=== PATIENT | female | born 1980 | race African-American/Black ===

== ENCOUNTER 2017-10-21 14:40 | Inpatient (IN) | payer MEDICAID ==
[~2017-10-21] VITALS: Ht 172.7 cm; Wt 64.0 kg
[2017-10-21 14:49] VITALS: Ht 172.7 cm; Wt 64.0 kg
[2017-10-21 15:10] LABS: BASOPHIL % 0.4 % (0-2); PLATELET COUNT 273 x10^3mcL (130-400); RED CELL DISTRIBUTION WIDTH 13.7 % (11.5-14.5)
[2017-10-21 15:21] LABS: CALCIUM 8.6 mg/dL (8.5-10.1); CARBON DIOXIDE 25.3 mmol/L (21-32); CHLORIDE SERUM 109 mmol/L (98-107); CREATININE SERUM 0.9 mg/dL (0.6-1.0); GFR1 > 60 mL/min; GLUCOSE SERUM 115 mg/dL (74-106); POTASSIUM SERUM 3.5 mmol/L (3.5-5.1); SODIUM SERUM 144 mmol/L (136-145)
[2017-10-21 15:27] LABS: ALBUMIN 3.1 g/dL (3.4-5.0); ALKALINE PHOSPHATASE 67 U/L (46-116); ALT/SGPT 22 U/L (14-59); AST/SGOT 19 U/L (15-37); BILIRUBIN TOTAL 0.32 mg/dL (0.20-1.00); TOTAL PROTEIN, SERUM 7.3 g/dL (6.4-8.2)
[2017-10-21 16:17] LABS: AMPHETAMINE QUAL UR NONE DETECTED (See below)
[2017-10-21 16:19] LABS: UA SPECIFIC GRAVITY >=1.030 (1.005-1.035); microscopic required? YES; urine erythrocyte 1+ (NEGATIVE)
[2017-10-22] MEDS ORDERED: VALIUM2 MG PO (17:44)
[2017-10-22 19:55] LABS: MAGNESIUM 2.1 mg/dL (1.8-2.4); PHOSPHOROUS 3.7 mg/dL (2.5-4.9)
[2017-10-22 20:03] LABS: T3 TOTAL 0.95 ng/mL
[2017-10-22 20:05] LABS: RED BLOOD CELLS 3.75 M/mm3 (4.10-5.10)
[2017-10-22 20:23] VITALS: BP 104/55
[2017-10-22 20:24] LABS: IRON 62 ug/dL (50-170); TOTAL IRON BINDING CAPACITY 282 ug/dL (250-450)
[2017-10-22 20:43] LABS: FREE T4 0.85 ng/dL (0.76-1.46); FREE THYROXINE INDEX 1.8 ug/dL (1.4-4.5); T4(THYROXINE) 5.4 ug/dL (4.7-13.3)
[2017-10-23 06:06] VITALS: BP 97/56
[2017-10-23 06:52] LABS: BASOPHIL % 0.4 % (0-2); PLATELET COUNT 256 x10^3mcL (130-400); RED CELL DISTRIBUTION WIDTH 14.3 % (11.5-14.5)
[2017-10-23 07:26] LABS: CALCIUM 8.2 mg/dL (8.5-10.1); CARBON DIOXIDE 23.9 mmol/L (21-32); CHLORIDE SERUM 105 mmol/L (98-107); CREATININE SERUM 0.6 mg/dL (0.6-1.0); GFR1 > 60 mL/min; GLUCOSE SERUM 87 mg/dL (74-106); POTASSIUM SERUM 3.8 mmol/L (3.5-5.1); SODIUM SERUM 137 mmol/L (136-145)
[2017-10-23 09:40] VITALS: BP 111/64
[2017-10-23 16:42] VITALS: BP 115/76
[2017-10-23 20:42] VITALS: BP 103/82
[2017-10-24 05:26] VITALS: BP 110/84
[2017-10-24 09:55] VITALS: BP 112/60
[2017-10-24 18:21] VITALS: BP 101/62
[2017-10-24 20:02] VITALS: BP 97/58
[2017-10-25 04:59] VITALS: BP 101/62
[2017-10-25 07:26] VITALS: BP 102/61
[2017-10-25 12:36] VITALS: BP 107/62
[2017-10-25 17:51] VITALS: BP 108/54
[2017-10-25 20:01] VITALS: BP 109/48
[2017-10-26 05:48] VITALS: BP 99/57
[2017-10-26 09:45] VITALS: BP 105/59
[2017-10-26 16:03] VITALS: BP 106/65
[2017-10-26 19:27] VITALS: BP 105/56
[2017-10-27 06:01] VITALS: BP 99/57
[2017-10-27 07:42] VITALS: BP 102/61
[2017-10-27 07:43] VITALS: BP 99/60
[2017-10-27 11:56] VITALS: BP 106/66
[2017-10-27 16:46] VITALS: BP 109/57
[2017-10-27 20:53] VITALS: BP 103/59
[2017-10-28 05:56] VITALS: BP 105/54
[2017-10-28 07:30] LABS: BASOPHIL % 0.6 % (0-2); PLATELET COUNT 258 x10^3mcL (130-400)
[2017-10-28 07:49] LABS: CALCIUM 8.5 mg/dL (8.5-10.1); CARBON DIOXIDE 28.2 mmol/L (21-32); CHLORIDE SERUM 103 mmol/L (98-107); CREATININE SERUM 0.7 mg/dL (0.6-1.0); GFR1 > 60 mL/min; GLUCOSE SERUM 81 mg/dL (74-106); MAGNESIUM 1.7 mg/dL (1.8-2.4); PHOSPHOROUS 3.1 mg/dL (2.5-4.9); POTASSIUM SERUM 4.1 mmol/L (3.5-5.1); SODIUM SERUM 136 mmol/L (136-145)
[2017-10-28 10:13] VITALS: BP 105/47
[2017-10-28 17:56] VITALS: BP 105/53
[2017-10-28 20:42] VITALS: BP 94/58
[2017-10-29 05:32] VITALS: BP 95/53
[2017-10-29 06:35] LABS: BASOPHIL % 0.6 % (0-2); PLATELET COUNT 245 x10^3mcL (130-400); RED CELL DISTRIBUTION WIDTH 14.2 % (11.5-14.5)
[2017-10-29 06:45] LABS: CALCIUM 8.8 mg/dL (8.5-10.1); CARBON DIOXIDE 27.8 mmol/L (21-32); CHLORIDE SERUM 105 mmol/L (98-107); CREATININE SERUM 0.8 mg/dL (0.6-1.0); GFR1 > 60 mL/min; GLUCOSE SERUM 83 mg/dL (74-106); MAGNESIUM 1.8 mg/dL (1.8-2.4); POTASSIUM SERUM 4.3 mmol/L (3.5-5.1); SODIUM SERUM 136 mmol/L (136-145)
[2017-10-29 08:19] VITALS: BP 104/49
[2017-10-29 17:28] VITALS: BP 102/81
[2017-10-29 20:50] VITALS: BP 100/52
[2017-10-30 05:55] VITALS: BP 98/57
[2017-10-30 09:20] VITALS: BP 103/63
[2017-10-30 16:37] VITALS: BP 110/52
[2017-10-30 23:17] VITALS: BP 104/53
[2017-10-31 05:27] VITALS: BP 97/52
[2017-10-31 08:11] VITALS: BP 108/62
[2017-10-31 17:18] VITALS: BP 101/55
[2017-10-31 19:50] VITALS: BP 103/53
[2017-11-01 05:43] VITALS: BP 111/62
[2017-11-01 09:33] VITALS: BP 100/59
[2017-11-01 17:35] VITALS: BP 100/46
[2017-11-02 05:29] VITALS: BP 101/65
[2017-11-02 09:20] VITALS: BP 112/64
[2017-11-03 05:44] VITALS: BP 96/55
[2017-11-03 10:08] VITALS: BP 102/54
[2017-11-03 20:55] VITALS: BP 91/63
[2017-11-04 05:36] VITALS: BP 109/60
[2017-11-04 10:04] VITALS: BP 111/54
[2017-11-04 21:03] VITALS: BP 98/48
[2017-11-05 05:28] VITALS: BP 102/55
[2017-11-05 08:07] VITALS: BP 109/62
[2017-11-05 12:06] VITALS: BP 110/61
[2017-11-05 17:10] VITALS: BP 91/42
[2017-11-05 21:37] VITALS: BP 102/53
[2017-11-06 04:46] VITALS: BP 96/52
[2017-11-06 10:03] VITALS: BP 102/58
[2017-11-06 17:32] VITALS: BP 104/43
[2017-11-06 20:39] VITALS: BP 102/58
[2017-11-07 05:30] VITALS: BP 103/54
[2017-11-07 09:33] VITALS: BP 120/69
[2017-11-07 17:43] VITALS: BP 124/72
[2017-11-07 20:46] VITALS: BP 112/60
[2017-11-08 05:50] VITALS: BP 127/75
[2017-11-08 08:25] VITALS: BP 113/62
[2017-11-08 16:24] VITALS: BP 106/63
[2017-11-08 20:35] VITALS: BP 123/67
[2017-11-09 05:42] VITALS: BP 105/54
[2017-11-09 07:55] VITALS: BP 109/63
[2017-11-09 09:30] VITALS: BP 113/64
[2017-11-09 11:48] VITALS: BP 118/73
[2017-11-09 16:00] VITALS: BP 108/62
[2017-11-09 20:58] VITALS: BP 102/57
[2017-11-10 05:06] VITALS: BP 95/47
[2017-11-10 08:23] VITALS: BP 118/60
[2017-11-10 16:38] VITALS: BP 108/60
[2017-11-10 17:01] VITALS: BP 125/70
[2017-11-10 20:37] VITALS: BP 103/60
[2017-11-11 05:22] VITALS: BP 109/57
[2017-11-11 08:24] VITALS: BP 118/63
[2017-11-11 17:03] VITALS: BP 109/58
[2017-11-11 20:43] VITALS: BP 109/57
[2017-11-12 05:39] VITALS: BP 103/63
[2017-11-12 09:04] VITALS: BP 158/65
[2017-11-12 17:17] VITALS: BP 87/45
[2017-11-12 20:53] VITALS: BP 100/81
[2017-11-13 05:13] VITALS: BP 137/62
[2017-11-13 09:15] VITALS: BP 127/73
[2017-11-13 17:06] VITALS: BP 130/69
[2017-11-14 04:52] VITALS: BP 91/52
[2017-11-14 08:34] VITALS: BP 112/60
[2017-11-14 17:05] VITALS: BP 99/54
[2017-11-14 20:58] VITALS: BP 93/54
[2017-11-15 05:32] VITALS: BP 92/47
[2017-11-15 08:38] VITALS: BP 117/71
[2017-11-15 17:00] VITALS: BP 107/53
[2017-11-15 20:30] VITALS: BP 96/44
[2017-11-16 05:38] VITALS: BP 97/55
[2017-11-16 08:37] VITALS: BP 113/66
[2017-11-16 17:06] VITALS: BP 107/63
[2017-11-16 21:25] VITALS: BP 102/54
[2017-11-17 08:00] VITALS: BP 114/76
[2017-11-17 17:26] VITALS: BP 100/55
[2017-11-17 20:47] VITALS: BP 116/66
[2017-11-17 20:53] VITALS: BP 98/55
[2017-11-18 05:36] VITALS: BP 101/59
[2017-11-18 08:58] VITALS: BP 110/72
[2017-11-18 16:49] VITALS: BP 106/58
[2017-11-18 20:55] VITALS: BP 105/60
[2017-11-19 05:17] VITALS: BP 94/60
[2017-11-19 09:31] VITALS: BP 139/81
[2017-11-19 16:58] VITALS: BP 122/63
[2017-11-19 20:15] VITALS: BP 108/67
[2017-11-20 05:18] VITALS: BP 110/62
[2017-11-20 10:00] VITALS: BP 115/61
[2017-11-20 17:06] VITALS: BP 92/51
[2017-11-20 21:33] VITALS: BP 100/62
[2017-11-21 05:15] VITALS: BP 97/50
[2017-11-21 09:53] VITALS: BP 108/61
[2017-11-21 16:36] VITALS: BP 94/47
[2017-11-21 20:44] VITALS: BP 95/57
[2017-11-22 05:11] VITALS: BP 101/50
[2017-11-22 08:08] VITALS: BP 109/61
[2017-11-22 13:08] VITALS: BP 99/64
[2017-11-22 18:00] VITALS: BP 93/57
[2017-11-22 21:29] VITALS: BP 99/54
[2017-11-23 04:57] VITALS: BP 101/58
[2017-11-23 09:43] VITALS: BP 104/60
[2017-11-23 16:40] VITALS: BP 97/51
[2017-11-23 20:41] VITALS: BP 104/59
[2017-11-24 05:23] VITALS: BP 92/47
[2017-11-24 09:17] VITALS: BP 108/56
[2017-11-24 17:34] VITALS: BP 97/57
[2017-11-24 20:54] VITALS: BP 110/62
[2017-11-25 05:46] VITALS: BP 114/73
[2017-11-25 06:46] LABS: BASOPHIL % 0.5 % (0-2); PLATELET COUNT 231 x10^3mcL (130-400); RED CELL DISTRIBUTION WIDTH 13.9 % (11.5-14.5)
[2017-11-25 07:02] LABS: CALCIUM 8.5 mg/dL (8.5-10.1); CARBON DIOXIDE 24.3 mmol/L (21-32); CHLORIDE SERUM 104 mmol/L (98-107); CREATININE SERUM 0.8 mg/dL (0.6-1.0); GFR1 > 60 mL/min; GLUCOSE SERUM 139 mg/dL (74-106); POTASSIUM SERUM 3.9 mmol/L (3.5-5.1); SODIUM SERUM 138 mmol/L (136-145)
[2017-11-25 09:05] VITALS: BP 107/66
[2017-11-25 17:53] VITALS: BP 100/46
[2017-11-25 21:07] VITALS: BP 97/56
[2017-11-26 05:44] VITALS: BP 99/63
[2017-11-26 08:39] VITALS: BP 99/49
[2017-11-26 16:39] VITALS: BP 92/52
[2017-11-26 21:02] VITALS: BP 91/47
[2017-11-27 05:36] VITALS: BP 108/60
[2017-11-27 09:15] VITALS: BP 108/64
[2017-11-27 16:02] VITALS: BP 93/56
[2017-11-27 21:09] VITALS: BP 110/58
[2017-11-28 05:27] VITALS: BP 108/60
[2017-11-28 08:28] VITALS: BP 101/50
[2017-11-28 16:34] VITALS: BP 99/61
[2017-11-28 20:53] VITALS: BP 104/58
[2017-11-29 05:32] VITALS: BP 100/60
[2017-11-29 08:47] VITALS: BP 112/81
[2017-11-29 16:31] VITALS: BP 98/58
[2017-11-29 20:48] VITALS: BP 104/62
[2017-11-30 05:31] VITALS: BP 95/54
[2017-11-30 07:56] VITALS: BP 99/63
[2017-11-30 17:25] VITALS: BP 95/46
[2017-11-30 20:38] VITALS: BP 93/46
[2017-12-01 05:40] VITALS: BP 110/66
[2017-12-01 08:24] VITALS: BP 99/56
[2017-12-01 17:19] VITALS: BP 95/52
[2017-12-01 20:53] VITALS: BP 91/50
[2017-12-02 05:38] VITALS: BP 94/46
[2017-12-02 06:50] LABS: CALCIUM 8.7 mg/dL (8.5-10.1); CARBON DIOXIDE 27.7 mmol/L (21-32); CHLORIDE SERUM 106 mmol/L (98-107); CREATININE SERUM 0.8 mg/dL (0.6-1.0); GFR1 > 60 mL/min; GLUCOSE SERUM 74 mg/dL (74-106); POTASSIUM SERUM 4.5 mmol/L (3.5-5.1); SODIUM SERUM 139 mmol/L (136-145)
[2017-12-02 06:52] LABS: BASOPHIL % 0.5 % (0-2); PLATELET COUNT 187 x10^3mcL (130-400); RED CELL DISTRIBUTION WIDTH 13.6 % (11.5-14.5)
[2017-12-02 08:25] VITALS: BP 90/48
[2017-12-02 17:09] VITALS: BP 95/50
[2017-12-02 20:30] VITALS: BP 109/56
[2017-12-03 05:22] VITALS: BP 103/58
[2017-12-03 10:03] VITALS: BP 98/50
[2017-12-03 17:59] VITALS: BP 93/52
[2017-12-03 21:41] VITALS: BP 108/60
[2017-12-04 05:23] VITALS: BP 117/62
[2017-12-04 10:18] VITALS: BP 120/71
[2017-12-04 17:07] VITALS: BP 94/54
[2017-12-04 21:22] VITALS: BP 101/58
[2017-12-05 04:58] VITALS: BP 98/50
[2017-12-05 09:47] VITALS: BP 93/56
[2017-12-05 16:46] VITALS: BP 96/55
[2017-12-05 20:37] VITALS: BP 100/62
[2017-12-06 05:53] VITALS: BP 100/60
[2017-12-06 08:12] VITALS: BP 94/50
[2017-12-06 16:25] VITALS: BP 100/54
[2017-12-06 20:12] VITALS: BP 101/55
[2017-12-07 05:21] VITALS: BP 91/53
[2017-12-07 09:19] VITALS: BP 95/55
[2017-12-07 17:09] VITALS: BP 96/50
[2017-12-07 21:29] VITALS: BP 94/59
[2017-12-08 04:53] VITALS: BP 101/55
[2017-12-08 13:12] VITALS: BP 97/53
[2017-12-08 16:55] VITALS: BP 99/58
[2017-12-08 19:55] VITALS: BP 97/49
[2017-12-09 04:57] VITALS: BP 101/56
[2017-12-09 08:08] VITALS: BP 109/61
[2017-12-09 17:20] VITALS: BP 106/60
[2017-12-09 19:15] VITALS: BP 102/70
[2017-12-10 05:04] VITALS: BP 99/59
[2017-12-10 08:33] VITALS: BP 103/50
[2017-12-10 17:18] VITALS: BP 118/47
[2017-12-10 19:00] VITALS: BP 102/54
[2017-12-11 05:50] VITALS: BP 106/60
[2017-12-11 08:04] VITALS: BP 99/60
[2017-12-11 11:58] VITALS: BP 103/61
[2017-12-11 18:37] VITALS: BP 104/70
[2017-12-11 21:00] VITALS: BP 108/70
[2017-12-12 05:59] VITALS: BP 91/52
[2017-12-12 08:11] VITALS: BP 99/59
[2017-12-12 12:09] VITALS: BP 100/61
[2017-12-12 17:26] VITALS: BP 96/62
[2017-12-12 20:56] VITALS: BP 127/66
[2017-12-13 05:07] VITALS: BP 107/67
[2017-12-13 09:00] VITALS: BP 95/52
[2017-12-13 16:50] VITALS: BP 118/73
== END 2017-12-13 20:25 | disposition left against medical advice (07) | DRG 750 ==
LOC: ED 14:40 → MU 20:20
PROVIDERS: Emergency Medicine; Family Medicine; Internal Medicine
DX: F20.3 Undifferentiated schizophrenia (principal); N17.0 Acute kidney failure with tubular necrosis; R45.851 Suicidal ideations; E44.0 Moderate protein-calorie malnutrition; E83.42 Hypomagnesemia; F12.10 Cannabis abuse, uncomplicated; D64.9 Anemia, unspecified; R31.9 Hematuria, unspecified; Z68.21 Body mass index [BMI] 21.0-21.9, adult
CPT/HCPCS: 84439; G0480; J7030; Q0092